=== PATIENT | male | born 1940 | race Caucasian/White ===

== ENCOUNTER 2018-06-07 13:29 | Emergency (ER) | payer MEDICARE ==
[2018-06-07 14:01] VITALS: TEMP 98.3
--- NOTE | 2018-06-07 16:51 | ED ---
General Adult HPI - General Chief complaint: Extremity Problem,Nontraumatic Stated complaint: lt sided leg blood clot Time Seen by Provider: 06/07/18 16:25 Source: patient, RN notes reviewed Mode of arrival: wheelchair Limitations: no limitations - History of Present Illness Initial comments: Patient 77-year-old male presented to the emergency room today with a chief complaint of left lower leg swelling over the last 4 days. Patient states that he noticed increased swelling. Admits to increased pain. Denies any injury or trauma. States never had similar symptoms in the past. Patient does admit that he follow family physician and they advised to have a ultrasound done outpatient. Patient did have a outpatient ultrasound which was positive for a DVT in the left leg. Patient denies any shortness breath or difficulty breathing. Patient denies any recent fever, chills, shortness of breath, chest pain, back pain, abdominal pain, nausea or vomiting, numbness or tingling, dysuria or hematuria, or any other complaints. - Related Data Previous Rx's Medication Instructions Recorded Apixaban [Eliquis] 5 mg PO DIRECTED #42 tab 06/07/18 Allergies Allergy/AdvReac Type Severity Reaction Status Date / Time No Known Allergies Allergy Verified 06/07/18 14:01 Review of Systems ROS Statement: Those systems with pertinent positive or pertinent negative responses have been documented in the HPI. ROS Other: All systems not noted in ROS Statement are negative. Past Medical History Past Medical History: Hypertension, Pneumonia, Prostate Disorder History of Any Multi-Drug Resistant Organisms: None Reported Additional Past Surgical History / Comment(s): lt femur rx with surgical repair Past Psychological History: No Psychological Hx Reported Smoking Status: Never smoker Past Alcohol Use History: Occasional Past Drug Use History: None Reported General Exam - General Exam Comments Initial Comments: General: The patient is awake and alert, in no distress, and does not appear acutely ill. Eye: Extra-ocular movements are intact. No nystagmus. There is normal conjunctiva bilaterally. No signs of icterus. Ears, nose, mouth and throat: There are moist mucous membranes and no oral lesions. Neck: The neck is supple, there is no tenderness or JVD. Cardiovascular: There is a regular rate and rhythm. No murmur, rub or gallop is appreciated. Respiratory: Lungs are clear to auscultation, respirations are non-labored, breath sounds are equal. No wheezes, stridor, rales, or rhonchi. Musculoskeletal: Normal ROM. Patient does have some swelling to left leg. Tender to the posterior calf and popliteal area. Sensation intact. Strength 5/ 5. Pulses equal bilaterally 2+. Neurological: A&O x 3. CN II-XII intact, There are no obvious motor or sensory deficits. Coordination appears grossly intact. Speech is normal. Skin: Skin is warm and dry and no rashes or lesions are noted. Psychiatric: Cooperative, appropriate mood & affect, normal judgment. Limitations: no limitations Course Vital Signs 06/07/18 13:56 Temperature 98.3 F Pulse Rate 107 H Respiratory 20 Rate Blood Pressure 120/75 O2 Sat by Pulse 95 Oximetry Medical Decision Making - Medical Decision Making Patient's ultrasound was reviewed and does show left lower extremity DVT extending from the left external iliac vein and popliteal vein. Results were discussed with attending physician Dr. Herrera who discussed case with on-call hospitalist doctor Jc who recommends the patient may start oral anticoagulants and follow-up outpatient. She will be started on a prescription emergency room given a prescription to continue. He is advised follow-up family physician over the next 2 days return here to the emergency room for any concerns. Disposition Clinical Impression: DVT (deep venous thrombosis) Disposition: HOME SELF-CARE Condition: Good Instructions: Deep Vein Thrombosis (ED) Additional Instructions: Please use medication as discussed. Please follow-up with family doctor in the next 2 days. Please return to emergency room if the symptoms increase or worsen or for any other concerns. Prescriptions: Apixaban [Eliquis] 5 mg PO DIRECTED #42 tab Is patient prescribed a controlled substance at d/c from ED?: No Referrals: Nonstaff,Physician [Primary Care Provider] - 1-2 days Eduar Bey MD [STAFF PHYSICIAN] - 1-2 days Time of Disposition: 16:53
[2018-06-07] MEDS ORDERED: APIXABAN 5 MG TAB PO STA (16:54)
[2018-06-07 17:25] VITALS: BP 132/87; PULSE 94; RESP 16
== END 2018-06-07 17:20 | disposition home or self-care (01) ==
LOC: EC 13:29
DX: I82.432 Acute embolism and thrombosis of left popliteal vein (principal); I82.422 Acute embolism and thrombosis of left iliac vein
CPT/HCPCS: 99283

== ENCOUNTER → 2018-06-07 | Outpatient (CLI) | payer MEDICARE ==
--- NOTE | 2018-06-07 13:24 | US ---
EXAMINATION TYPE: US venous doppler duplex LE LT DATE OF EXAM: 06/07/2018 1:15 PM COMPARISON: NONE CLINICAL HISTORY: M79.669 UNSP.PAIN IN LOWER LEG. Pt states left calf pain and swelling x 4 days SIDE PERFORMED: Left TECHNIQUE: The lower extremity deep venous system is examined utilizing real time linear array sonog bill with graded compression, doppler sonography and color-flow sonography. VESSELS IMAGED: External Iliac Vein (EIV) Common Femoral Vein Deep Femoral Vein Greater Saphenous Vein * Femoral Vein Popliteal Vein Small Saphenous Vein * Proximal Calf Veins (* superficial vessels) Left Leg: Positive for DVT entire left leg Results called to Maryann Aponte at time of exam, was told to send pt to ER IMPRESSION: 1. Extensive left lower extremity DVT extending from the left external iliac vein through the poplite al vein.
== END | disposition home or self-care (01) ==
LOC: LABWHC1 12:49
PROVIDERS: ATTEND Nurse Practitioner Family
DX: I82.422 Acute embolism and thrombosis of left iliac vein (principal); I82.432 Acute embolism and thrombosis of left popliteal vein